=== PATIENT | female | born 1950 | race Caucasian/White ===

== ENCOUNTER → 2021-01-30 | Outpatient (CLI) | payer MEDICARE ==
[2021-02-01 09:21] LABS: HBSAG SCREEN Negative (Negative); HEP B CORE AB, TOT Negative (Negative)
[2021-02-01 10:21] LABS: HCV AB <0.1 (0.0-0.9)
[2021-02-01 12:33] LABS: RHEUMATOID ARTHRITIS FACTOR <10.0 IU/mL (0.0-13.9)
== END ==
LOC: LAB 17:12
PROVIDERS: Internal Medicine
DX: Z11.59 Encounter for screening for other viral diseases (principal); M25.50 Pain in unspecified joint; R79.82 Elevated C-reactive protein (CRP); Z79.899 Other long term (current) drug therapy
CPT/HCPCS: 36415; 83520; 85652; 86140; 86200; 86431; 86704; 86803; 87340